=== PATIENT | female | born 1995 | race African-American/Black ===

== ENCOUNTER 2021-02-16 16:17 | Emergency (ER) | payer SELFPAY ==
[~2021-02-16] VITALS: Ht 167.6 cm; Wt 60.8 kg
[2021-02-16] MEDS ORDERED: BUPRENORPHINE HCL 2 MG TAB.SUBL SL ONE ×2 (16:30→16:38)
[2021-02-16] MEDS ORDERED: ONDANSETRON ODT 4 MG TAB.RAPDIS SL ONE (16:45)
[2021-02-16] MEDS ORDERED: ONDANSETRON ODT 4 MG TAB.RAPDIS ONE (16:50)
[2021-02-16 17:15] VITALS: BP 106/65
--- NOTE | 2021-02-16 17:15 | NUR ---
Patient discharged to home in stable condition. Written and verbal after care instructions given. Patient verbalizes understanding of instructions. Stressed follow up or return to ER for worsening s/s.
== END 2021-02-16 17:15 | disposition home or self-care (01) ==
LOC: ER 16:21
DX: F11.13 Opioid abuse with withdrawal (principal)
CPT/HCPCS: A4663; Q0162